=== PATIENT | male | born 1950 | race Caucasian/White ===

== ENCOUNTER → 2022-09-26 | Outpatient (CLI) | payer MEDICARE, SELFPAY ==
--- NOTE | 2022-09-26 07:59 | CT_ITS ---
STUDY: CT ORBITS WITH AND WITHOUT CONTRAST REASON FOR EXAM: Male, 72 years old. DIPLOPIA RADIATION DOSAGE (If Supplied By Facility): CTDIvol = ( 29.38 ) mGy, DLP = ( 926.13 ) mGycm TECHNIQUE: The patient was scanned in a multi detector CT scanner. Transaxial imaging was performed prior to and following the administration of IV 50mL Isovue-[id number]. Sagittal and coronal images were reconstructed. Individualized dose optimization techniques were used for this CT. COMPARISON: None. FINDINGS: Normal globes. Normal intraconal spaces. Normal optic nerve sheath complex. Normal bilateral extraocular muscles. Normal lacrimal glands. Normal bilateral medial and inferior orbital amador. Normal bilateral maxillary bones. Normal bilateral frontozygomatic arches. Normal bilateral zygomatic temporal arches. Normal frontal sinus. Partial opacification of the ethmoid sinuses. Opacification of the left maxillary sinus. Normal sphenoid sinuses. Normal soft tissue structures. There is no demonstrated abnormal enhancement. Atherosclerotic plaque formation of the cavernous portions of the internal carotid arteries bilaterally. CT/Orb Sella Post Fossa Ear W/WO IMPRESSION: Opacification of left maxillary sinus. Partial opacification of the ethmoid sinuses. Electronically Signed: Marvel Whitlock MD at 8:59 EST ,
[2022-09-26 08:35] LABS: CREATININE FINGERSTICK 1.4 mg/dL (0.70-1.30)
== END | disposition home or self-care (01) ==
PROVIDERS: PCP Family Medicine; Visit Provider Ophthalmology
DX: H53.2 Diplopia (principal)
CPT/HCPCS: 70482; Q9967